=== PATIENT | male | born 1985 | race Caucasian/White ===

== ENCOUNTER 2022-03-24 18:05 | Emergency (ER) | payer BC, OTHER ==
[2022-03-24] MEDS ORDERED: Aspirin 81 MG Tab.Chew PO ONE (18:10)
[2022-03-24] MEDS ORDERED: Sodium Chloride 0.9% 1,000 ML IV ONE (18:10)
[2022-03-24 19:02] LABS: BLOOD UREA NITROGEN,BUN 9 mg/dL (7.0-18.0); CARBON DIOXIDE,CO2 25.5 mmol/L (21.0-32.0); CHLORIDE,CL 101 mmol/L (98-107); GLUCOSE RANDOM 123 mg/dL (74-106); POTASSIUM,K 3.8 mmol/L (3.5-5.1); SODIUM,NA 138 mmol/L (136-148)
[2022-03-24 19:04] LABS: ESTIMATED GFR 100 mL/min (>60)
[2022-03-24 19:20] LABS: CORONAVIRUS COVID-19 NAA NEGATIVE (NEGATIVE); INFLUENZA A NAA NEGATIVE (NEGATIVE); INFLUENZA B NAA NEGATIVE (NEGATIVE)
== END 2022-03-24 19:45 | disposition home or self-care (01) ==
LOC: MW.ED 18:05
DX: R07.9 Chest pain, unspecified (principal); Z88.0 Allergy status to penicillin; Z20.822 Contact with and (suspected) exposure to COVID-19
CPT/HCPCS: 0240U; 36415; 71045; 80053; 83735; 84484; 85025; 85379; 96360; 99285; A9270; J7030; 93005